=== PATIENT | female | born 1960 | race Caucasian/White ===

== ENCOUNTER 2022-04-07 09:19 | Emergency (ER) | payer BC, SELFPAY ==
[2022-04-07 09:50] VITALS: BP 143/86; PULSE 124; RESP 22; TEMP 37.1; O2SAT 97; BMI 30.6
--- NOTE | 2022-04-07 10:15 | ED.NURSE ---
Patient left prior to receiving discharge information.
--- NOTE | 2022-04-14 04:04 | ED_ITS ---
HPI - Nausea/Vomiting/Diarrhea General Chief complaint: Diarrhea Stated complaint: Vomiting, diarrhea, blood in stool Time Seen by Provider: 04/07/22 09:58 History of Present Illness HPI Narrative: 61-year-old woman presenting to the emergency department with concern of some small bloody diarrhea. Had some episodes of vomiting last night and then diarrhea this morning that was stained with blood. Does have known diverticulosis. She is not having abdominal pain. Is not feeling lightheaded short of breath. No fever. Tends to constipation. Not anticoagulated. No bleeding problems noted. No clear exposures. Wonders about some food. Does have an appointment next week with primary care provider. I believe was recommended by triage line to present to the ER. Related Data Home Medications Medication Instructions Recorded Confirmed aspirin 81 mg capsule 81 mg PO DAILY 04/07/22 04/07/22 atorvastatin 20 mg tablet mg 04/07/22 lisinopril 10 mg tablet mg 04/07/22 metformin 1,000 mg tablet mg 04/07/22 ranitidine HCl 150 mg tablet mg 04/07/22 semaglutide 1 mg/dose (4 mg/3 mL) mg subcut 04/07/22 subcutaneous pen injector (Ozempic) Allergies Allergy/AdvReac Type Severity Reaction Status Date / Time amoxicillin Allergy Verified 04/07/22 09:50 Penicillins Allergy Verified 04/07/22 09:50 Sulfa (Sulfonamide Allergy Verified 04/07/22 09:50 Antibiotics) Review of Systems Status of ROS: Reports: 10 or more systems reviewed and unremarkable except as noted in History and below PFSH PFS Social History Smoking Status: Never smoker Do you use any of these nicotine containing products: None Second hand tobacco smoke exposure: No How often do you have a drink containing alcohol: never How often do you have six or more drinks on one occasion: Never AUDIT-C Alcohol total score: 0 Non-prescribed substance use: denies use service: No Exam Narrative: Exam Narrative: Very pleasant. Of good energy. Cranial nerves 2-12 look to be intact. Breathing easily. Heart with elevated rate in a regular rhythm. Mucous membranes are well perfused. Lungs appear to be clear. Abdomen with normal maybe even a little hyperactive bowel sounds. Soft. Nontender. Const: Documenting provider has reviewed patient's vital signs: yes Course Vital Signs Vital signs: Initial Vital Signs Temperature 98.7 F 04/07/22 09:50 Temperature Source Temporal Artery Scan 04/07/22 09:50 Pulse Rate 124 H 04/07/22 09:50 Respiratory Rate 22 04/07/22 09:50 Blood Pressure 143/86 H 04/07/22 09:50 Blood Pressure Mean 105 04/07/22 09:50 Pulse Oximetry 97 04/07/22 09:50 Oxygen Delivery Method 04/07/22 09:50 Vital Signs Temperature 98.7 F 04/07/22 09:50 Pulse Rate 124 H 04/07/22 09:50 Respiratory Rate 22 04/07/22 09:50 Blood Pressure 143/86 H 04/07/22 09:50 Pulse Oximetry 97 04/07/22 09:50 Oxygen Delivery Method 04/07/22 09:50 Temperature 98.7 F 04/07/22 09:50 Pulse Rate 124 H 04/07/22 09:50 Respiratory Rate 22 04/07/22 09:50 Blood Pressure 143/86 H 04/07/22 09:50 Pulse Oximetry 97 04/07/22 09:50 Oxygen Delivery Method 04/07/22 09:50 MDM - Nausea/Vomiting/Diarrhea MDM Narrative Medical decision making narrative: Appears generally well. Is in no distress at this time. Abdomen is soft. Would suspect rectal passage bleeding. Certainly could be a colitis but I might expect more discomfort at that point. Has not had further episodes. Regardless I think this would be a watch and wait situation. Does have follow-up next week. Ms. Galvez is in agreement with this plan. Discharge Plan Discharge Clinical Impression: Painless rectal bleeding Patient Disposition: Home w/ Parent or Adult Condition: Stable Additional Instructions: I understand you have a follow-up next week with your primary care provider I think it is okay to talk with them about this and make further plans at that time. Otherwise return for marked increase in persistent abdominal pain, increasing bloody stools, associated lightheadedness or shortness of breath or fever. Over the next 24 hours might be a good idea to have a light diet. Diluted juices, soup broths advancing to thicker soups, smoothies. Rice. [place]. Crackers. I would though maybe take a couple of doses of MiraLax equivalent daily or whatever works for you to be sure that your stools are soft over the next week. I realize you had this diarrheal stool. Prescriptions: No Action atorvastatin 20 mg tablet metformin 1,000 mg tablet lisinopril 10 mg tablet Ozempic 1 mg/dose (4 mg/3 mL) pen injector SUBCUT ranitidine HCl 150 mg tablet aspirin 81 mg capsule 81 mg PO DAILY Follow Up/Referrals: Holli Villafana DO [Primary Care Provider] - Stand Alone Forms: [facility] Info Instructions
== END 2022-04-07 10:50 | disposition home or self-care (01) ==
LOC: ED 10:51
PROVIDERS: Emergency Provider Family Medicine; PCP Family Medicine
DX: K62.5 Hemorrhage of anus and rectum (principal)
CPT/HCPCS: 99282; 99283